=== PATIENT | male | born 1975 | race Two or more races ===

== ENCOUNTER 2022-05-09 22:52 | Emergency (ER) | payer OTHER ==
[2022-05-10] MEDS ORDERED: HYDROmorphone 1 MG/ML Syringe IM ONE (00:17)
== END 2022-05-10 02:24 | disposition home or self-care (01) ==
LOC: JD.ED 22:52
DX: S16.1XXA Strain of muscle, fascia and tendon at neck level, initial encounter (principal); S29.012A Strain of muscle and tendon of back wall of thorax, initial encounter; I10 Essential (primary) hypertension; V59.59XA Passenger in pick-up truck or van injured in collision with other motor vehicles in traffic accident, initial encounter; Y92.410 Unspecified street and highway as the place of occurrence of the external cause
CPT/HCPCS: 71250; 72125; 96372; 99284; J1170